=== PATIENT | female | born 1955 | race Caucasian/White ===

== ENCOUNTER 2019-12-14 11:20 | Inpatient (IN) | payer MEDICARE ==
[~2019-12-14] VITALS: Ht 162.6 cm; Wt 72.3 kg
[2019-12-14] MEDS ORDERED: LIDO2SOL9 MT (11:34)
[2019-12-14] MEDS ORDERED: RA M500C PO (11:34)
[2019-12-14] MEDS ORDERED: BUPR-69 PO (11:34)
[2019-12-14] MEDS ORDERED: LACT20EL PO (11:34)
[2019-12-14] MEDS ORDERED: AMLO25TA PO (11:34)
[2019-12-14] MEDS ORDERED: ALBU83IN NEB (11:34)
[2019-12-14] MEDS ORDERED: NESI25TA PO (11:34)
[2019-12-14] MEDS ORDERED: FAMO40TA3 PO (11:34)
[2019-12-14] MEDS ORDERED: VICT18IN SC (11:34)
[2019-12-14] MEDS ORDERED: MAGN400T2 PO (11:34)
[2019-12-14] MEDS ORDERED: LISI40TA PO (11:34)
[2019-12-14] MEDS ORDERED: [UNRECOGNIZED DRUG - CODE] PO (11:34)
[2019-12-14] MEDS ORDERED: GABA-845 PO (11:34)
[2019-12-14] MEDS ORDERED: FERR325T15 PO (11:34)
[2019-12-14] MEDS ORDERED: VITAPOW9 XX (11:34)
[2019-12-14] MEDS ORDERED: PANT40TA29 PO (11:34)
[2019-12-14] MEDS ORDERED: JANU100T14 PO (11:35)
[2019-12-14] MEDS ORDERED: MORPHINE 2 MG/ML 1ML VIAL (J2270) IV PRN ×2 (12:00→17:30)
--- NOTE | 2019-12-14 12:26 | REPVR ---
PROCEDURE INFORMATION: Exam: CT Head Without Contrast Exam date and time: 12/14/2019 12:03 PM Age: 64 years old Clinical indication: Injury or trauma; Fall; Blunt trauma (contusions or hematomas) TECHNIQUE: Imaging protocol: Computed tomography of the head without contrast. Radiation optimization: All CT scans at this facility use at least one of these dose optimization techniques: automated exposure control; mA and/or kV adjustment per patient size (includes targeted exams where dose is matched to clinical indication); or iterative reconstruction. COMPARISON: No relevant prior studies available. FINDINGS: Brain: There is no acute intracranial hemorrhage, cerebral edema, or midline shift. Chronic microvascular ischemic changes are seen in the periventricular white matter. Age-related cerebral and cerebellar volume loss is present. Cerebral ventricles: Mild ex vacuo dilation of the lateral ventricles is noted. Bones/joints: No acute fracture. Paranasal sinuses: There is no acute sinusitis. Mastoid air cells: The mastoid air cells are clear. Orbital cavity: The included orbital structures are unremarkable. Vasculature: Atherosclerotic calcifications are seen involving the cavernous carotid arteries. Soft tissues: Unremarkable. IMPRESSION: 1. No acute intracranial abnormality. 2. Atrophy and chronic deep white matter ischemic changes. Electronically signed by: Andrey Flores On 12/14/2019 12:25:57 PM
--- NOTE | 2019-12-14 12:29 | REPVR ---
PROCEDURE INFORMATION: Exam: CT Cervical Spine Without Contrast Exam date and time: 12/14/2019 12:03 PM Age: 64 years old Clinical indication: Injury or trauma; Fall; Blunt trauma TECHNIQUE: Imaging protocol: Computed tomography images of the cervical spine without contrast. Radiation optimization: All CT scans at this facility use at least one of these dose optimization techniques: automated exposure control; mA and/or kV adjustment per patient size (includes targeted exams where dose is matched to clinical indication); or iterative reconstruction. COMPARISON: No relevant prior studies available. FINDINGS: Vertebrae: There is straightening of the normal cervical lordosis. There is 3 mm of anterolisthesis of C4 on C5 and 2 mm of anterolisthesis of C5 on C6. No acute fracture is identified. Discs/Spinal canal/Neural foramina: Mild degenerative changes of the cervical spine are present. There is no significant spinal canal stenosis. Soft tissues: Unremarkable. Lungs: Lung apices are normal. IMPRESSION: 1. No acute abnormality. 2. Chronic findings as discussed above. Electronically signed by: Andrey Flores On 12/14/2019 12:29:32 PM
--- NOTE | 2019-12-14 12:33 | REPVR ---
PROCEDURE INFORMATION: Exam: XR Chest, 1 View Exam date and time: 12/14/2019 11:54 AM Age: 64 years old Clinical indication: Screening exam; Pre-operative exam; Cardiovascular screening; Additional info: Preop TECHNIQUE: Imaging protocol: XR of the chest Views: 1 view. COMPARISON: No relevant prior studies available. FINDINGS: Lungs: Unremarkable. No consolidation. Pleural space: Unremarkable. No pleural effusion. No pneumothorax. Heart/Mediastinum: Unremarkable. No cardiomegaly. Bones/joints: Unremarkable. IMPRESSION: No acute findings. Electronically signed by: Andrey Flores On 12/14/2019 12:33:43 PM
--- NOTE | 2019-12-14 12:35 | REPVR ---
PROCEDURE INFORMATION: Exam: XR Left Hip with Pelvis when Performed Exam date and time: 12/14/2019 11:54 AM Age: 64 years old Clinical indication: Hip pain; Left hip; Additional info: Preop, fell TECHNIQUE: Imaging protocol: XR Left hip with pelvis when performed. Views: 2 or 3 views. COMPARISON: No relevant prior studies available. FINDINGS: Bones/joints: There is an acute minimally displaced left intertrochanteric fracture. A slight varus deformity is noted. There is no dislocation. Moderate degenerative changes of the hips are present. Soft tissues: Unremarkable. IMPRESSION: Acute left intertrochanteric fracture Electronically signed by: Andrey Flores On 12/14/2019 12:34:55 PM
--- NOTE | 2019-12-14 12:36 | REPVR ---
PROCEDURE INFORMATION: Exam: XR Left Femur Exam date and time: 12/14/2019 12:12 PM Age: 64 years old Clinical indication: Pain; Hip; Left; Additional info: Fall, ap hip image is in hip order TECHNIQUE: Imaging protocol: XR Left femur. Views: 2 views. COMPARISON: CR - Hip,AP,LAT to include Pelvis LEFT 12/14/2019 12:01:00 PM FINDINGS: Bones/joints: There is a partially visualized acute left intertrochanteric fracture. No other fracture is seen. Mild osteopenia is present. Soft tissues: Unremarkable. IMPRESSION: Acute left intertrochanteric fracture Electronically signed by: Andrey Flores On 12/14/2019 12:36:09 PM
[2019-12-14 12:39] LABS: HEMATOCRIT 26.6 % (36.0-47.0); HEMOGLOBIN 8.1 g/dl (12.0-15.5); MEAN CORPUSCULAR HGB CONC 30.5 g/dl (32.0-36.5); PLATELET COUNT, AUTOMATED 223 10^3/uL (150-450); RED BLOOD COUNT 2.89 10^6/uL (4.00-5.40); WHITE BLOOD COUNT 11.3 10^3/uL (4.0-10.0)
[2019-12-14 13:17] LABS: ALT/SGPT 17 U/L (12-78); BILIRUBIN,TOTAL 0.3 MG/DL (0.2-1.0); BLOOD UREA NITROGEN 22 MG/DL (7-18); CALCIUM LEVEL 8.3 MG/DL (8.8-10.2); CARBON DIOXIDE LEVEL 24 MEQ/L (21-32); CHLORIDE LEVEL 115 MEQ/L (98-107); CK-MB VALUE MASS 1.9 NG/ML (<3.6); CPK CREATINE PHOSPHOKINASE 44 U/L (26-192); CREATININE FOR GFR 1.75 MG/DL (0.55-1.30); FERRITIN 6 NG/ML (8-252); GLOMERULAR FILTRATION RATE 31.1 (>45); GLUCOSE, FASTING 160 MG/DL (70-100); IRON (FE) 37 UG/DL (50-170); MB/CK RELATIVE INDEX 4.32 (< OR =4); PERCENT SATURATION 9.2 % (13.2-45.0); SODIUM LEVEL 141 MEQ/L (136-145); TOTAL IRON BINDING CAPACITY 403 UG/DL (250-450); TOTAL PROTEIN 5.6 GM/DL (6.4-8.2); TROPONIN I < 0.02 NG/ML (< 0.10)
[2019-12-14 13:24] LABS: VITAMIN B12 LEVEL 400 PG/ML (247-911)
[2019-12-14] MEDS ORDERED: BASA100I SC (13:27)
[2019-12-14] MEDS ORDERED: KCL 10MEQ IN D5/0.45NS 1000ML 1,000 ML IV SCH (14:00)
[2019-12-14] MEDS ORDERED: hydrALAZINE 20MG/ML 1ML VIAL (J0360 PER 20MG) IV ONE (14:00)
[2019-12-14] MEDS ORDERED: GLUCAGON INJ 1MG VIAL SC PRN (14:00)
[2019-12-14] MEDS ORDERED: IPRATROPIUM 0.5MG/ALBUTEROL 2.5MG INH SOL UD 3ML (DUONEB) NEB PRN (14:00)
[2019-12-14] MEDS ORDERED: MORPHINE 10 MG/ML 1ML VIAL (J2270) IV ONE (14:00)
[2019-12-14] MEDS ORDERED: GLUCOSE 4GM CHEW TABLET PO PRN (14:00)
[2019-12-14] MEDS ORDERED: amLODIPine 5 MG TAB PO ONE (14:00)
[2019-12-14] MEDS ORDERED: DEXTROSE 50% 50 ML SYRINGE IV PRN (14:00)
[2019-12-14] MEDS ORDERED: IPRATROPIUM 0.5MG/ALBUTEROL 2.5MG INH SOL UD 3ML (DUONEB) NEB ONE (14:15)
[2019-12-14] MEDS ORDERED: D5W/0.45% SODIUM CHLORIDE 1,000 ML IV SCH (14:30)
--- NOTE | 2019-12-14 14:35 | HPEPDOC ---
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 Patient is visiting along with her to help her daughter at [place] move to [place], [place]. She had already taken a shower this morning but went back into the bathroom to wash her face and hair, with her daughter in the bathtub when she slipped and fell on wet tiles landing on her left side and hitting the tub. Her family did not wonder move her worried that they might make the fracture worse. She complained of 10 out of 10 pain on the left side without head trauma or loss of consciousness. Her daughter stepped out of the bathtub, checked on her, and found that her left leg was twisted inwards with the toes pointing medially. She did not appear pale, diaphoretic, short of breath, or cyanotic. She was on the bathroom floor for about 10 minutes when her picked her up by bear-hugging her, preventing her from weightbearing on the left lower extremity, and place her on the bed. In the emergency room she was found to have a left hip fracture. EKG shows left ventri cular hypertrophy without acute ST-T wave changes. Chest x-ray negative for acute cardiopulmonary disease. Patient and the patient's both consented to surgery. Orthopedic surgery was consulted. Hospitalist was called to admit the patient for left hip fracture status post mechanical fall. . She denied any prodromal symptoms and denied any chest pain, pressure, tightness, shortness of breath, lightheadedness, dizziness, palpitations, nausea, vomiting, epigastric discomfort prior to the fall. She has been in her usual state of health and denied any fever, chills, shortness of breath, nausea, vomiting, dysuria, urgency, frequency, weight gain, weight loss, polyuria, polyphasia, insomnia, ear pain, discharge, tinnitus, vertigo, photophobia, diplopia. She admits to having chronic short-term memory loss and has difficulty with her left side due to prior history of CVA, but per the is able to walk up and down the grocery store and able to walk up the stairs without shortness of breath or chest pain. She has no prior history of coronary artery disease, IA or congestive heart failure. She denies any bright red blood per rectum, melena, black tarry stools, history of gastritis, peptic ulcer disease, but was noted to have chronic anemia with hemoglobin of 8. 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 Springer. Full code. Healthcare proxy is Evangelist Kern, cell phone [phone]. 10-kelv-oofy history of smoking, still smokes 1 pack per day. No alcohol use. No recreational drug use. Retired senior corporate accountant. Lives in [place]. Has a daughter at [place] who is moving to [place], [place] FAMILY HISTORY: . Father cancer age 62, involving the lung, kidney and liver, unknown where the primary may have been. . Mother age 76 CVA ALLERGIES: Please see below. REVIEW OF SYSTEMS: 12 point systems review obtained and negative aside from positive findings on HPI, documented above HOME MEDICATIONS: Please see below. PHYSICAL EXAMINATION: VITAL SIGNS: See below GENERAL APPEARANCE: Awake, alert, oriented to person, place and time, answering questions appropriately HEENT: Face is symmetric. Tongue is midline. Speech is fluent. No JVD, thyromegaly or cervical lymphadenopathy. No carotid bruit CARDIOVASCULAR: S1, S2, sinus rhythm, no murmurs, rubs or gallops LUNGS: No kyphosis scoliosis. Air entry is equal bilaterally. Bilateral rhonchi ABDOMEN: Positive bowel sounds 4 quadrants, soft, nontender, nondistended. No abdominal bruit MUSCULOSKELETAL: Left lower extremity rotated inwards. Left third, fourth, fifth digits are fused left hip tender, unable to assess for range of motion due to severe pain EXTREMITIES: No cyanosis, clubbing or pitting edema LABORATORY DATA: See below. EKG: Sinus rhythm, ventricular rate of 58, nonspecific ST-T wave changes, left ventricle hypertrophy IMAGING STUDIES: X-ray left hip with pelvis 12/14/2019. Acute left intertrochanteric fracture, minimally displaced a slight varus deformities noted. There is no dislocation. Moderate degenerative changes of the hips are present, unremarkable soft tissue 12/14/2019. CT head without contrast No acute intracranial abnormality 12/14/2019 Chest x-ray No acute findings 12/14/[address] cervical spine without contrast There is straightening of the normal cervical lordosis. There is 3 mm of anterolisthesis of C4 and C5 and 2 mm anterolisthesis of C5 on C6. No acute fracture is identified. Mild degenerative changes of the cervical spine are present. No significant spinal canal stenosis. Soft tissues are unremarkable. Lung apices are normal. 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 Patient is visiting along with her to help her daughter at [facility] to [place], [place]. She had already taken a shower this morning but went back into the bathroom to wash her face and hair, with her daughter in the bathtub when she slipped and fell on wet tiles landing on her left side and hitting the tub. Her family did not wonder move her worried that they might make the fracture worse. She complained of 10 out of 10 pain on the left side without head trauma or loss of consciousness. Her daughter stepped out of the bathtub, checked on her, and found that her left leg was twisted inwards with the toes pointing medially. She did not appear pale, diaphoretic, short of breath, or cyanotic. She was on the bathroom floor for about 10 minutes when her picked her up by bear-hugging her, preventing her from weightbearing on the left lower extremity, and place her on the bed. In the emergency room she was found to have a left hip fracture. EKG shows left ventricular hypertrophy without acute ST-T wave changes. Chest x-ray negative for acute cardiopulmonary disease. Patient and the patient's both consented to surgery. Orthopedic surgery was consulted. Hospitalist was called to admit the patient for left hip fracture status post mechanical fall. . She denied any prodromal symptoms and denied any chest pain, pressure, tightness, shortness of breath, lightheadedness, dizziness, palpitations, nausea, vomiting, epigastric discomfort prior to the fall. She has been in her usual state of health and denied any fever, chills, shortness of breath, nausea, vomiting, dysuria, urgency, frequency, weight gain, weight loss, polyuria, polyphasia, insomnia, ear pain, discharge, tinnitus, vertigo, photophobia, diplopia. She admits to having chronic short-term memory loss and has difficulty with her left side due to prior history of CVA, but per the is able to walk up and down the grocery store and able to walk up the stairs without shortness of breath or chest pain. She has no prior history of coronary artery disease, IA or congestive heart failure. She denies any bright red blood per rectum, melena, black tarry stools, history of gastritis, peptic ulcer disease, but was noted to have chronic anemia with hemoglobin of 8. Preoperative medical clearance: -Patient has not had any prior history of coronary artery disease, IA or congestive heart failure. She does have risk factors for coronary artery disease including diabetes, hypertension, actively smoking cigarettes and with her prior history of CVA, and most likely has stable angina. However, per the , her functional capacity has metabolic equivalence of greater than 4 and she is currently not having any acute ischemic symptoms or complaints. Her EKG has left ventricular hypertrophy, most likely from chronic hypertension and long-standing diabetes but has no acute ST or T-wave changes. Her chest x-ray has no fluid overload. Despite having rhonchorous breath sounds, Patient is saturating well at 96% on room air without any history of COPD or emphysema and no documented history of prior oxygen use or steroid dependency. Patient will be given nebulizers every 4 hourly, Norvasc to improve her blood pressure, intravenous morphine for pain control, and will be Nothing by mouth for surgery. She is cu rrently medically stable to proceed to surgery, and will be placed on intravenous fluids for maintenance and hypoglycemic protocol,with fingersticks every 6 hourly. Covid testing has been ordered. INR ordered. compression stockings for DVT prophylaxis preoperatively. Mechanical fall from a standing position at home with an acute left intertrochanteric fracture -Patient denies any prodromal symptoms. She is medically stable to proceed to surgery. Orthopedic surgery, Dr. Jean Teixeira, has been consulted. She will be kept nothing by mouth patient denies taking any antiplatelet or anticoagulants despite her history of stroke with residual chronic short-term memory loss and occasional left lower extremity weakness. Records have been requested from her neurologist in [place]. For comfort and to decrease risk of worsening fracture, patient will be On bed rest. IV morphine as needed every 30 minutes will be made available for pain control. History of CVA with chronic short-term memory loss -Patient denies being on chronic aspirin antiplatelet therapy or anticoagulation. She follows with a neurologist in [place]. Medical records have been requested. Due to chronic short-term memory loss, She will most likely have difficulty working with physical therapy and occupational therapy postoperatively. Her will be permitted to stay with her during the hospital stay as she will most likely need 24/ 7 assistance. Hypertension, uncontrolled -Due to acute left intertrochanteric fracture. Patient complains of severe pain, which is contributing to uncontrolled hypertension. She has been given IV morphine 5 mg in the emergency room, and has as needed morphine every 30 minutes for pain control while nothing by mouth. Postop pain management will be deferred to orthopedic surgery. Patient has been given Norvasc, with blood pressure monitoring every 4 hourly while awaiting surgical intervention. Type 2 diabetes with diabetic neuropathy -Since the patient is awaiting surgical intervention. She will be kept nothing by mouth on hypoglycemic protocol. Insulin sliding scale with coverage and fingersticks every 6 hourly to prevent hypoglycemia. A1c will be checked in the morning labs and she'll be resumed on a consistent carbohydrate diet Postoperatively Active tobacco abuse/chronic bronchitis -Tobacco cessation counseling has been provided. Nicotine patch, nicotine gum will be made available for her comfort. Combivent every 4 hourly and every 2 hourly as needed for wheezing. Chest x-ray is normal. Diabetic nephropathy/chronic kidney disease stage III -Records from her outpatient primary care physician and been requested, avoid nephrotoxins. Renally dose all medications, no signs of rhabdomyolysis with total CK being normal. Strict I's and O's, daily weights Anemia, most likely secondary to chronic kidney disease and iron deficiency -Iron studies, Hemoccult stool, reticulocyte count and peripheral blood smear have been ordered. Type and screen. Transfuse if hemoglobin is less than 8 or symptomatic. There are no signs of acute blood loss and no obvious hematoma. . She denies any history of GI bleed. Monitor hemoglobin and hematocrit every 6 hourly postoperatively if hemoglobin significantly decreases postop. DVT prophylaxis. Compression stockings while nothing by mouth awaiting surgery CODE STATUS full code. Healthcare proxy Evangelist Kern [phone] Disposition: 3-4 days Vital Signs Vital Signs Date Time Temp Pulse Resp B/P (MAP) Pulse Ox O2 Delivery O2 Flow Rate FiO2 12/14/19 13:16 60 96 12/14/19 13:15 175/66 (102) 12/14/19 11:37 98.3 16 Room Air Laboratory Data Labs 24H Laboratory Tests 2 12/14/19 11:54: Nucleated Red Blood Cells % (auto) 0.0, Anion Gap 2L, Glomerular Filtration Rate 31.1L, Calcium Level 8.3L, Iron Level 37L, Total Iron Binding Capacity 403, Transferrin % Saturation 9.2L, Ferritin 6L, Total Bilirubin 0.3, Aspartate Amino Transf (AST/SGOT) 20, Alanine Aminotransferase (ALT/SGPT) 17, Alkaline Phosphatase 99, Total Creatine Kinase 44, Creatine Kinase MB 1.9, Creatine Kinase MB Relative Index 4.32H, Troponin I < 0.02, Total Protein 5.6L, Albumin 3.0L, Albumin/Globulin Ratio 1.2, Vitamin B12 Level 400, Thyroid Stimulating Hormone (TSH) 1.780 12/14/19 13:04: CBC/BMP Laboratory Tests 12/14/19 11:54 Home Medications Scheduled Alogliptin Benzoate (Nesina) 25 Mg Tablet, 25 MG PO DAILY Amlodipine Besylate (Amlodipine Besylate) 2.5 Mg Tablet, 2.5 MG PO DAILY Bupropion HCl (Bupropion HCl) 100 Mg Tablet, 150 MG PO BID Famotidine (Famotidine) 40 Mg Tablet, 40 MG PO DAILY Ferrous Fumarate (Ferretts) 325 Mg Tablet, 1 TAB PO DAILY Gabapentin (Gabapentin) 400 Mg Capsule, 1 CAP PO TID Lactulose (Lactulose) 10 Gm/15 Ml Solution, 30 ML PO BID for constipation Liraglutide (Victoza 2-Gera) 0.6 Mg/0.1 Ml Pen.injctr, 1.8 MG SC DAILY Lisinopril (Lisinopril) 40 Mg Tablet, 1 TAB PO DAILY Magnesium Oxide (Magnesium Oxide) 400 Mg Tablet, 1 TAB PO DAILY for constipation Magnesium Oxide (Magnesium) 500 Mg Capsule, 1 CAP PO BID for constipation Pantoprazole Sodium (Pantoprazole Sodium) 40 Mg Tablet.dr, 40 MG PO DAILY Sitagliptin Phos/Metformin HCl (Janumet Xr 100-1,000 mg Tablet) 1 Each Tbmp.24hr, 1 TAB PO DAILY Scheduled PRN Albuterol Sulf (Albuterol Sulfate) 2.5 Mg/3 Ml Vial.neb, 1 VIAL NEB Q6-8HP PRN for wheezing Miscellaneous Medications Cholecalciferol (Vitamin D3) (Vitamin D3) 1 Gm Powder, 100,000 UNIT XX Insulin Glargine,Hum.rec.anlog (Basaglar Kwikpen U-100) 100 Unit/1 Ml Insuln.pe n, 30 UNIT SC Leucovorin/Pyridox/Mecobalamin (Folinic-Plus Caplet) 1 Each Tablet, 1 TAB PO Lidocaine HCl (Lidocaine HCl Viscous) 100 Ml Solution, 2 % MT Allergies Coded Allergies: No Known Drug Allergies (Verified Allergy, Unknown, 12/14/19) A-FIB/CHADSVASC A-FIB History Current/History of A-Fib/PAF?: No Current PO Anticoag Therapy: No Age/Risk Factor Scoring CHADSVASC: CHADSVASC Response (Comments) Value Age Risk Factor Age 65-74 years old 1 Gender Risk Factor Female 1 Hx of CHF No 0 Hx of HTN Yes 1 Hx of Stroke/TIA/or VTE Yes 2 Hx of Diabetes Yes 1 Hx of Vascular Disease Yes 1 Total 7 Treatment Treatment ordered: NONE Reason Anticoagulant not given: Recent/upcomin procedure ALEXIS GROSS MD Dec 14, 2019 14:17
[2019-12-14] MEDS ORDERED: KETAMINE HCL 200 MG/20 ML VIAL As Ordered ONE (14:36)
[2019-12-14] MEDS ORDERED: propofoL 200 MG/20 ML VIAL As Ordered ONE (14:36)
[2019-12-14] MEDS ORDERED: LIDOCAINE 2% 100MG/5ML SDV (FOR ANES.) As Ordered ONE (14:36)
[2019-12-14] MEDS ORDERED: MIDAZOLAM INJ 2MG/2ML VIAL (J2250 PER 1MG) As Ordered ONE (14:36)
[2019-12-14] MEDS ORDERED: fentaNYL 100 MCG/2 ML INJECTION (J3010) As Ordered ONE (14:36)
[2019-12-14] MEDS ORDERED: JANU100T PO (14:40)
[2019-12-14] MEDS ORDERED: GABA600T4 PO (14:40)
[2019-12-14] MEDS ORDERED: PROP40TA62 PO (14:40)
[2019-12-14] MEDS ORDERED: DULO1CAP6 PO (14:40)
[2019-12-14] MEDS ORDERED: MECL-86 PO (14:40)
[2019-12-14] MEDS ORDERED: BUPR1TAB53 PO (14:40)
[2019-12-14] MEDS ORDERED: ATOR1TAB19 PO (14:40)
[2019-12-14] MEDS ORDERED: ceFAZolin 2 GM/D5W 50 ML IV BAG (J0690 PER 500MG) As Ordered ONE (15:15)
[2019-12-14] MEDS ORDERED: TRANEXAMIC ACID 100 MG/ML 10ML VIAL As Ordered ONE (15:15)
[2019-12-14 15:17] LABS: INR 1.06
[2019-12-14 15:18] LABS: PARTIAL THROMBOPLASTIN TIME 21.6 SECONDS (24.2-38.5)
[2019-12-14] MEDS ORDERED: ePHEDrine SULFATE 25 MG/5 ML(5MG/ML) SYRINGE As Ordered ONE ×2 (16:09→16:10)
[2019-12-14] MEDS ORDERED: ePHEDrine INJ 50 MG/ML VIAL As Ordered ONE (16:17)
[2019-12-14] MEDS ORDERED: ACETAMINOPHEN 1000MG 100ML IV BTL (OFIRMEV) (J0131 PER 10MG) As Ordered ONE (16:42)
[2019-12-14] MEDS ORDERED: ONDANSETRON 4MG/2ML VIAL As Ordered ONE (16:45)
[2019-12-14] MEDS ORDERED: DEXTROSE 50% 50 ML SYRINGE IV SCH (17:30)
[2019-12-14] MEDS ORDERED: fentaNYL 100 MCG/2 ML INJECTION (J3010) IV PRN (17:30)
[2019-12-14] MEDS ORDERED: oxyCODONE 5MG TAB PO PRN (17:30)
[2019-12-14] MEDS ORDERED: METOCLOPRAMIDE INJ 10MG/2ML VIAL (J2765 PER 1) IV PRN (17:30)
[2019-12-14] MEDS ORDERED: ONDANSETRON 4MG/2ML VIAL IV PRN ×2 (17:30)
[2019-12-14] MEDS ORDERED: LR 1,000 ML IV SCH ×2 (17:30)
[2019-12-14] MEDS ORDERED: DEXTROSE 50% 50 ML SYRINGE ONE (18:44)
[2019-12-14 19:30] VITALS: BP 182/72
[2019-12-14 20:00] VITALS: BP 165/51
[2019-12-14] MEDS: IPRATROPIUM 0.5MG/ALBUTEROL 2.5MG INH SOL UD 3ML (DUONEB) NEB SCH ×2 (20:00→23:31)
[2019-12-14] MEDS: PERCOCET 5MG/325MG TAB PO PRN (20:34)
[2019-12-14 21:00] VITALS: BP 163/58
[2019-12-14 22:00] VITALS: BP 159/57
[2019-12-15] VITALS (8 sets, daily range): BP systolic 148–165; BP diastolic 58–68
[2019-12-15] MEDS: ceFAZolin SOD 2 GM in IV 1 EA IV SCH ×2 (00:26→09:14)
[2019-12-15] MEDS: PERCOCET 5MG/325MG TAB PO PRN ×3 (01:21→18:16)
[2019-12-15] MEDS: IPRATROPIUM 0.5MG/ALBUTEROL 2.5MG INH SOL UD 3ML (DUONEB) NEB SCH ×6 (04:00→23:43)
[2019-12-15] MEDS ORDERED: MECLIZINE 25 MG TABLET PO PRN (06:15)
[2019-12-15 06:40] LABS: HEMATOCRIT 22.5 % (36.0-47.0); MEAN CORPUSCULAR HEMOGLOBIN 27.9 pg (27.0-33.0); MEAN CORPUSCULAR HGB CONC 30.2 g/dl (32.0-36.5); MEAN CORPUSCULAR VOLUME 92.2 fl (80.0-96.0); PLATELET COUNT, AUTOMATED 179 10^3/uL (150-450); RED BLOOD COUNT 2.44 10^6/uL (4.00-5.40); WHITE BLOOD COUNT 8.6 10^3/uL (4.0-10.0)
[2019-12-15 06:43] LABS: HEMOGLOBIN 6.8 g/dl (12.0-15.5)
[2019-12-15 06:55] LABS: HEMOGLOBIN A1c 6.9 %
[2019-12-15 07:15] LABS: CALCIUM LEVEL 7.6 MG/DL (8.8-10.2); CHOLESTEROL RISK RATIO 2.074 (<5); CREATININE FOR GFR 1.6 MG/DL (0.55-1.30); GLOMERULAR FILTRATION RATE 34.4 (>45); POTASSIUM SERUM 4.5 MEQ/L (3.5-5.1); THYROID STIMULATING HORMONE 0.619 uIU/ML (0.358-3.740)
--- NOTE | 2019-12-15 07:35 | CR ---
DATE OF CONSULTATION: 12/14/2019 CHIEF COMPLAINT: Left intertrochanteric hip fracture. HISTORY OF PRESENT ILLNESS: This is a 64-year-old female is here with her , Evangelist. They have been staying from [place]. They are visiting their granddaughter. They are moving her to [place]. They are staying in a motel. She fell in the bathroom. She was unable to ambulate. There was no loss of consciousness. She has left hip pain. No other injuries. No prior hip pain. MEDICAL HISTORY: 1. Type 2 diabetes. 2. Stroke in 2009. 3. Hypertension. MEDICATIONS: No anticoagulants. She appears to be on albuterol, senna, amlodipine, bupropion, vitamin D, ferrous fumarate, gabapentin, insulin glargine, lactulose, leucovorin, liraglutide, lisinopril, magnesium, pantoprazole, sitagliptin. ALLERGIES: No known drug allergies. SURGICAL HISTORY: Per the hospitalist. SOCIAL HISTORY: Smokes a pack of cigarettes a day. No ambulator aids. Rarely consumes alcohol. She is here with her , Evangelist. 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 PHYSICAL EXAMINATION: A 64-year-old female. She is alert and oriented times three. Vital signs stable. She appears well. I see no other injuries. She points to the left side as the site with pain. Closed injury. thighcompartments are soft. No obvious hematoma. Normal sensation and motor function of the foot. Foot is warm and well perfused. Good pedal pulses. She can wiggle her toes, dorsiflex and plantarflex her foot. There is slight diminished sensation over the dorsum of it, from her chronic neuropathy she stated. Radiographs were obtained of the left hip and left femur. This shows a minimally displaced left intertrochanteric hip fracture. No distal extension and no obvious bone lesions. CT scan was also performed of the head. This is negative for acute intracranial abnormalities. Blood work performed showing a low hemoglobin at 8.1. Coagulation studies are pending and ordered by myself. COVID test is pending. ASSESSMENT AND PLAN: This is a 64-year-old female with a left hip intertrochanteric fracture. This would benefit from open reduction, internal fixation (ORIF) with intramedullary jennifer. We discussed pros, cons, risks, and benefits of nonsurgical treatment versus surgery. Surgical risks include, but are not limited to, infection, pain, stiffness, weakness, damage to surrounding structures, neurovascular injury, delayed, mal, or nonunion, hardware irritation, hardware failure, need for secondary surgeries, anesthetic complications, blood clots, , and other risks. She wished to go ahead. We marked the left lower extremity. Signed the consent form for surgery as well as possible need for blood products. Pros, cons, risks, benefits as well. Various treatments were discussed also with the hospitalist. YOLANDA
[2019-12-15] MEDS ORDERED: lisinopriL 40 MG TAB PO SCH (09:00)
[2019-12-15] MEDS: MOM 30ML SUSPENSION UDC PO SCH (09:14)
[2019-12-15] MEDS: DULoxetine 30 MG CAP (CYMBALTA) PO SCH ×2 (09:15→20:30)
[2019-12-15] MEDS: buPROPion **SR TABLET** (ZYBAN) 150MG PO SCH (09:15)
[2019-12-15] MEDS ORDERED: MORPHINE 4 MG/ML 1ML VIAL/SYRINGE (J2270) IV ONE (09:15)
[2019-12-15] MEDS: PROPRANOLOL 20 MG TAB PO SCH ×2 (09:16→20:29)
[2019-12-15] MEDS: MIRALAX *UNIT DOSE* 17GM PACKET PO SCH (09:16)
[2019-12-15] MEDS: PANTOPRAZOLE 40MG TAB (PROTONIX) PO SCH (09:16)
[2019-12-15] MEDS: GABAPENTIN 300 MG CAP PO SCH (09:16)
[2019-12-15] MEDS: ATORVASTATIN 10 MG TAB PO SCH (09:16)
--- NOTE | 2019-12-15 10:14 | IPNPDOC ---
Date Seen The patient was seen on 12/15/19. Progress Note SUBJECTIVE: She complains of 10 out of 10 pain while being repositioned in bed status post left hip ORIF with intramedullary placement, postop day #1. Repeat CBC this morning has a decrease in hemoglobin from 8.1-6.8 after receiving IV fluids yesterday of 1.375 L while she was nothing by mouth patient otherwise denies any bright red blood per rectum, melena, black tarry stools, hematemesis. No signs of hematoma at the hip site postoperatively. Patient has no ecchymosis around the umbilicus. No Garrison Tan's sign noted. OBJECTIVE: PHYSICAL EXAMINATION: VITAL SIGNS: See below GENERAL APPEARANCE: Awake, alert, oriented to person, place and time, answering questions appropriately HEENT: Face is symmetric. Tongue is midline. Speech is fluent. No JVD, thyromegaly or cervical lymphadenopathy. No carotid bruit CARDIOVASCULAR: S1, S2, sinus rhythm, no murmurs, rubs or gallops LUNGS: No kyphosis scoliosis. Air entry is equal bilaterally. Bilateral rhonchi ABDOMEN: Positive bowel sounds 4 quadrants, soft, nontender, nondistended. No abdominal bruit MUSCULOSKELETAL: Postop left hip bandage clean and dry. No bloody discharge EXTREMITIES: No cyanosis, clubbing or pitting edema LABORATORY DATA: See below. EKG: Sinus rhythm, ventricular rate of 58, nonspecific ST-T wave changes, left ventricle hypertrophy IMAGING STUDIES: X-ray left hip with pelvis 12/14/2019. Acute left intertrochanteric fracture, minimally displaced a slight varus deformities noted. There is no dislocation. Moderate degenerative changes of the hips are present, unremarkable soft tissue 12/14/2019. CT head without contrast No acute intracranial abnormality 12/14/2019 Chest x-ray No acute findings 12/14/[address] cervical spine without contrast There is straightening of the normal cervical lordosis. There is 3 mm of anterolisthesis of C4 and C5 and 2 mm anterolisthesis of C5 on C6. No acute fracture is identified. Mild degenerative changes of the cervical spine are present. No significant spinal canal stenosis. Soft tissues are unremarkable. Lung apices are normal. 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 Patient is visiting along with her to help her daughter at [employer] move to [place], [place]. She had already taken a shower this morning but went back into the bathroom to wash her face and hair, with her daughter in the bathtub when she slipped and fell on wet tiles landing on her left side and hitting the tub. Her family did not wonder move her worried that they might make the fracture worse. She complained of 10 out of 10 pain on the left side without head trauma or loss of consciousness. Her daughter stepped out of the bathtub, checked on her, and found that her left leg was twisted inwards with the toes pointing medially. She did not appear pale, diaphoretic, short of breath, or cyanotic. She was on the bathroom floor for about 10 minutes when her picked her up by bear-hugging her, preventing her from weightbearing on the left lower extremity, and place her on the bed. In the emergency room she was found to have a left hip fracture. EKG shows left ventricular hypertrophy without acute ST-T wave changes. Chest x-ray negative for acute cardiopulmonary disease. Patient and the patient's both consented to surgery. Orthopedic surgery was consulted. Hospitalist was called to admit the patient for left hip fracture status post mechanical fall. . She denied any prodromal symptoms and denied any chest pain, pressure, tightness, shortness of breath, lightheadedness, dizziness, palpitations, nausea, vomiting, epigastric discomfort prior to the fall. She has been in her usual state of health and denied any fever, chills, shortness of breath, nausea, vomiting, dysuria, urgency, frequency, weight gain, weight loss, polyuria, polyphasia, insomnia, ear pain, discharge, tinnitus, vertigo, photophobia, diplopia. She admits to having chronic short-term memory loss and has difficulty with her left side due to prior history of CVA, but per the is able to walk up and down the grocery store and able to walk up the stairs without shortness of breath or chest pain. She has no prior history of coronary artery disease, UT or congestive heart failure. She denies any bright red blood per rectum, melena, black tarry stools, history of gastritis, peptic ulcer disease, but was noted to have chronic anemia with hemoglobin of 8. Mechanical fall from a standing position at home with an acute left intertrochanteric fracture PHYSICAL EXAMINATION: VITAL SIGNS: See below GENERAL APPEARANCE: Awake, alert, oriented to person, place and time, answering questions appropriately HEENT: Face is symmetric. Tongue is midline. Speech is fluent. No JVD, thyromegaly or cervical lymphadenopathy. No carotid bruit CARDIOVASCULAR: S1, S2, sinus rhythm, no murmurs, rubs or gallops LUNGS: No kyphosis scoliosis. Air entry is equal bilaterally. Bilateral rhonchi ABDOMEN: Positive bowel sounds 4 quadrants, soft, nontender, nondistended. No abdominal bruit MUSCULOSKELETAL: Left lower extremity rotated inwards. Left third, fourth, fifth digits are fused left hip tender, unable to assess for range of motion due to severe pain EXTREMITIES: No cyanosis, clubbing or pitting edema LABORATORY DATA: See below. EKG: Sinus rhythm, ventricular rate of 58, nonspecific ST-T wave changes, left ventricle hypertrophy IMAGING STUDIES: X-ray left hip with pelvis 12/14/2019. Acute left intertrochanteric fracture, minimally displaced a slight varus deformities noted. There is no dislocation. Moderate degenerative changes of the hips are present, unremarkable soft tissue 12/14/2019. CT head without contrast No acute intracranial abnormality 12/14/2019 Chest x-ray No acute findings 12/14/[address] cervical spine without contrast There is straightening of the normal cervical lordosis. There is 3 mm of anterolisthesis of C4 and C5 and 2 mm anterolisthesis of C5 on C6. No acute fracture is identified. Mild degenerative changes of the cervical spine are present. No significant spinal canal stenosis. Soft tissues are unremarkable. Lung apices are normal. 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 Patient is visiting along with her to help her daughter at [employer] move to [place], [place]. She had already taken a shower this morning but went back into the bathroom to wash her face and hair, with her daughter in the bathtub when she slipped and fell on wet tiles landing on her left side and hitting the tub. Her family did not wonder move her worried that they might make the fracture worse. She complained of 10 out of 10 pain on the left side without head trauma or loss of consciousness. Her daughter stepped out of the bathtub, checked on her, and found that her left leg was twisted inwards with the toes pointing medially. She did not appear pale, diaphoretic, short of breath, or cyanotic. She was on the bathroom floor for about 10 minutes when her picked her up by bear-hugging her, preventing her from weightbearing on the left lower extremity, and place her on the bed. In the emergency room she was found to have a left hip fracture. EKG shows left ventricular hypertrophy without acute ST-T wave changes. Chest x-ray negative for acute cardiopulmonary disease. Patient and the patient's both consented to surgery. Orthopedic surgery was consulted. Hospitalist was called to admit the patient for left hip fracture status post mechanical fall. . She denied any prodromal symptoms and denied any chest pain, pressure, tightness, shortness of breath, lightheadedness, dizziness, palpitations, nausea, vomiting, epigastric discomfort prior to the fall. She has been in her usual state of health and denied any fever, chills, shortness of breath, nausea, vomiting, dysuria, urgency, frequency, weight gain, weight loss, polyuria, polyphasia, insomnia, ear pain, discharge, tinnitus, vertigo, photophobia, diplopia. She admits to having chronic short-term memory loss and has difficulty with her left side due to prior history of CVA, but per the is able to walk up and down the grocery store and able to walk up the stairs without shortness of breath or chest pain. She has no prior history of coronary artery disease, UT or congestive heart failure. She denies any bright red blood per rectum, melena, black tarry stools, history of gastritis, peptic ulcer disease, but was noted to have chronic anemia with hemoglobin of 8. PROBLEMS: Mechanical fall from a standing position at home with an acute left intertrochanteric fracture History of CVA with chronic short-term memory loss Hypertension, uncontrolled Type 2 diabetes with diabetic neuropathy Active tobacco abuse/chronic bronchitis Diabetic nephropathy/chronic kidney disease stage III Anemia, most likely secondary to chronic kidney disease, iron deficiency, and hemodilution. PLAN: Postop management per orthopedic surgery including pain medication bowel regimen and DVT prophylaxis. Patient has developed postop anemia, most likely hemodilution, chronic renal failure and iron deficiency. She will be given 1 unit of RBC transfusion today. Hemoccult stool has been ordered. Patient may have difficulty following instructions from physical therapy and occupational therapy due to prior history of CVA and chronic left leg weakness along with difficulty with short-term memory. We will allow her to be with her during the day while she is working with physical therapy to remind her of instructions. Patient lives in [place] and was only passing through the [facility] to help her daughter moved to [place], [place]. She has been advised that it is best to fly home versus driving home all the way from [place] to [place] Post[facility] when she is medically cleared. Acute rehabilitation unit screen has been ordered. Patient is currently on DVT prophylaxis, but we'll need to monitor for worsening anemia or any signs of overt GI bleed. CODE STATUS full code. Healthcare proxy Evangelist Kern [phone] VS, I&O, 24H, Fishbone Vital Signs/I&O Vital Signs Date Time Temp Pulse Resp B/P (MAP) Pulse Ox O2 Delivery O2 Flow Rate FiO2 12/15/19 09:16 75 158/68 12/15/19 09:15 16 12/15/19 06:00 97.3 99 Nasal Cannula 2.0 I&O- Last 24 Hours up to 6 AM 12/15/19 06:00 Intake Total 1425 ml Output Total 100 ml Balance 1325 ml Laboratory Data 24H LABS Laboratory Tests 2 12/14/19 11:54: Reticulocyte # (auto) 56.4, Nucleated Red Blood Cells % (auto) 0.0, Differential Slide Review Report, Peripheral Blood Smear Path Consult PERIPHERAL SMEAR, Percent Reticulocyte Count 1.9H, Reticulocyte Hemoglobin Equivalent 24.2, Anion Gap 2L, Glomerular Filtration Rate 31.1L, Calcium Level 8.3L, Iron Level 37L, Total Iron Binding Capacity 403, Transferrin % Saturation 9.2L, Ferritin 6L, Total Bilirubin 0.3, Aspartate Amino Transf (AST/SGOT) 20, Alanine Aminotransferase (ALT/SGPT) 17, Alkaline Phosphatase 99, Total Creatine Kinase 44, Creatine Kinase MB 1.9, Creatine Kinase MB Relative Index 4.32H, Troponin I < 0.02, Total Protein 5.6L, Albumin 3.0L, Albumin/Globulin Ratio 1.2, Vitamin B12 Level 400, Thyroid Stimulating Hormone (TSH) 1.780 12/14/19 13:04: Coronavirus (COVID-19)(PCR) NEGATIVE 12/14/19 14:45: Prothrombin Time 14.0, Prothromb Time International Ratio 1.06, Activated Partial Thromboplast Time 21.6L 12/14/19 17:14: Bedside Glucose (Misc Panel) 47L 12/14/19 17:15: Bedside Glucose (Misc Panel) 46L 12/14/19 17:33: Bedside Glucose (Misc Panel) 177H 12/14/19 17:58: Bedside Glucose (Misc Panel) 139H 12/14/19 20:24: Bedside Glucose (Misc Panel) 109 12/15/19 06:28: Nucleated Red Blood Cells % (auto) 0.0, Anion Gap 5L, Glomerular Filtration Rate 34.4L, Estimated Mean Plasma Glucose 151H, Hemoglobin A1c 6.9, Calcium Level 7.6L, Triglycerides Level 138, Total Cholesterol 112, LDL Cholesterol 30, Non- HDL Cholesterol (LDL + VLDL) 58, Total HDL Cholesterol 54, Cholesterol/HDL Ratio 2.074, Thyroid Stimulating Hormone (TSH) 0.619 CBC/BMP Laboratory Tests 12/14/19 11:54 12/15/19 06:28 ALEXIS GROSS MD Dec 15, 2019 10:14
[2019-12-15] MEDS: RIVAROXABAN 10 MG TAB (XARELTO) PO SCH (18:15)
--- NOTE | 2019-12-15 19:08 | ECGEPIP ---
[facility] - ED Test Date: 2019-12-14 Pat Name: SANCHEZ WISE Department: Room: - Gender: Male [employer]: : 1955 Requested By: PAPO Rosario Order Number: [id number] Reading MD: Charles Nieves Measurements Intervals [place] Rate: 58 P: 27 VA: 158 QRS: -13 QRSD: 91 T: 75 QT: 416 QTc: 410 Interpretive Statements SINUS BRADYCARDIA LEFT VENTRICULAR HYPERTROPHY AND ST-T CHANGE NO PRIORS FOR COMPARISON Electronically Signed on 12-15-2019 19:08:10 EDT by Charles Nieves
[2019-12-16] MEDS: PERCOCET 5MG/325MG TAB PO PRN ×2 (03:19→21:20)
[2019-12-16] MEDS: IPRATROPIUM 0.5MG/ALBUTEROL 2.5MG INH SOL UD 3ML (DUONEB) NEB SCH ×6 (04:00→23:03)
[2019-12-16 06:00] VITALS: BP 175/66
[2019-12-16] MEDS ORDERED: PERCOCET 5MG/325MG TAB PO ONE (07:15)
[2019-12-16] MEDS ORDERED: amLODIPine 10 MG TAB PO ONE (07:15)
[2019-12-16] MEDS ORDERED: MORPHINE 2 MG/ML 1ML VIAL (J2270) IV ONE (07:15)
--- NOTE | 2019-12-16 07:19 | RO ---
DATE OF OPERATION: 12/14/2019 PREOPERATIVE DIAGNOSIS: Left hip intertrochanteric hip fracture. POSTOPERATIVE DIAGNOSIS: Left hip intertrochanteric hip fracture. PLANNED PROCEDURE: Left hip intramedullary nailing/open reduction and internal fixation. PROCEDURE PERFORMED: Left hip intramedullary nailing/open reduction and internal fixation. SURGEON: Dr. Jean Teixeira SCADA TECHNICIAN: ANESTHESIOLOGIST: Dr. Pulido TYPE OF ANESTHETIC: Spinal anesthetic. OPERATIVE PREAMBLE: This 64-year-old female had a mechanical fall. She sustained a minimally displaced left intertrochanteric hip fracture. The pros and cons, risks and benefits of going ahead with surgery were discussed with her and her . They wished to proceed. I saw her in preoperative holding and reiterated the risks and proceeded to surgery. OPERATIVE REPORT: The patient was brought to the operating theater. She was administered spinal anesthetic. The patient was administered 2 gm IV Ancef and 2 gm IV tranexamic acid prior to the start of the case. She was placed in traction setup, left leg in traction setup with internal rotation and slight traction, the right leg in scissoring position attached to the bed with padding overlying the peroneal nerve. X-rays were brought in, AP and lateral to confirm proper reduction. Limb was prepped and draped in usual sterile fashion with Chlorhexidine based prep solution and shower curtain style drape. Preoperative time out was performed confirming site, patient and surgery. I began by using a 3.2 mm partially threaded guidewire at the greater trochanter, both AP and lateral radiographs, down the center of the femoral canal on both AP and lateral radiographs aiming toward the lesser trochanter. I then made percutaneous stab incision, used the entry reamer to open the canal. I then used sequential reaming up to size 12.5 mm over top of the ball-tip guidewire, this was placed down distally down to the center-center at the knee on AP and lateral radiographs. This measured 390 mm and as such I took off 10 mm and inserted a 380 mm long nail, 125 degree neck shaft angle, 11 mm diameter. Guidewire was removed, drop-down guide placed, again using percutaneous technique and 3.2 mm guidewire into the center of the femoral neck and head into subchondral bone on both AP and lateral radiographs. This measured 105 mm. I performed near-far technique to ensure no penetration. There was one incidence of the guidewire penetrating subchondral bone, this was backed off immediately after it was noticed. I reamed to 100 mm in depth and then reamed up to 100 mm and inserted the 100 mm long helical blade. I impacted this down fully. I used guide to perform gentle compression at the fracture site. I then locked the fracture proximally and removed the drop down guide as well as the 3.2 mm guidewire. I turned my attention distally. I made stab incisions perfect chitimacha technique to insert the Crosslocks, the most distal one measured 44 mm long and more proximal one measured 40 mm long. Proximal one achieved quite good bite in the locking hole and the distal one achieved only reasonable bite but was bicortical. Guide was removed. Final pictures were taken, AP and lateral radiographs. Proper reduction was achieved, the nail was in proper position. The wounds were thoroughly irrigated. The subcutaneous tissue was closed with interrupted 2-0 Vicryl sutures and skin with smooth, Steri-Strips. Skin was cleaned with wet-to-dry dressing followed by application of Adaptic, 4 x 8 gauze and occlusive dressing. The patient was transferred off the operating table and taken out of traction setup and transferred to the postanesthesia care unit in stable condition. All sponge, needle, clamps and instrument counts were correct. Estimated blood loss: 100 cc. Plan for the patient is to be admitted to the hospital under Hospitalist Service, pain control, Xarelto 10 mg PO once daily for the next 35 days for DVT prophylaxis starting postoperative day 1. Will be made weightbearing as tolerated with PT/OT services to aid in mobilization on discharge home. [place] so may eventually be transferred back, where long- term placement is located. Follow up with myself or with another surgeon to take out smooth and do postoperative radiographs in a week or two. YOLANDA
--- NOTE | 2019-12-16 07:22 | IPNPDOC ---
Date Seen The patient was seen on 12/16/19. Progress Note SUBJECTIVE: c/o 8/10 pain scale with ambulation and bearing weight. wants to go home, but ARU appropriate unable to get up on her own. no overt GI bleed. s/p 1 u rbc. no sob, cp, lightheadedness. Uncontrolled HTN due to pain and anxiety. OBJECTIVE: PHYSICAL EXAMINATION: VITAL SIGNS: See below GENERAL APPEARANCE: Awake, alert, oriented to person, place and time, answering questions appropriately HEENT: Face is symmetric. Tongue is midline. no conversational dyspneaSpeech is fluent. No JVD, thyromegaly or cervical lymphadenopathy. No carotid bruit CARDIOVASCULAR: S1, S2, sinus rhythm, no murmurs, rubs or gallops LUNGS: No kyphosis scoliosis. Air entry is equal bilaterally.diminished ABDOMEN: Positive bowel sounds 4 quadrants, soft, nontender, nondistended. No abdominal bruit MUSCULOSKELETAL: Postop left hip bandage clean and dry. No bloody discharge EXTREMITIES: No cyanosis, clubbing or pitting edema LABORATORY DATA: See below. EKG: Sinus rhythm, ventricular rate of 58, nonspecific ST-T wave changes, left ventricle hypertrophy IMAGING STUDIES: X-ray left hip with pelvis 12/14/2019. Acute left intertrochanteric fracture, minimally displaced a slight varus deformities noted. There is no dislocation. Moderate degenerative changes of the hips are present, unremarkable soft tissue 12/14/2019. CT head without contrast No acute intracranial abnormality 12/14/2019 Chest x-ray No acute findings 12/14/[address] cervical spine without contrast There is straightening of the normal cervical lordosis. There is 3 mm of anterolisthesis of C4 and C5 and 2 mm anterolisthesis of C5 on C6. No acute fracture is identified. Mild degenerative changes of the cervical spine are present. No significant spinal canal stenosis. Soft tissues are unremarkable. Lung apices are normal. 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 PROBLEMS: Mechanical fall from a standing position at home with an acute left intertrochanteric fracture History of CVA with chronic short-term memory loss Hypertension, uncontrolled Type 2 diabetes with diabetic neuropathy Active tobacco abuse/chronic bronchitis Diabetic nephropathy/chronic kidney disease stage III Anemia, most likely secondary to chronic kidney disease, iron deficiency, and he modilution, s/p 1 u rbc transfusion 12/15/19 PLAN: Postop management per orthopedic surgery including pain medication bowel regimen and DVT prophylaxis. ARU appropriate. monitor for bleeding while on AC. s/p 1 u rbc. repeat cbc. monitor creatinine. BP uncontrolled due to pain, pain meds given, and bp meds adjusted. asymptomatic without acute cardiac ischemic symptoms. CODE STATUS full code. Healthcare proxy Evangelist Kern [phone] VS, I&O, 24H, [facility] Vital Signs/I&O Vital Signs Date Time Temp Pulse Resp B/P (MAP) Pulse Ox O2 Delivery O2 Flow Rate FiO2 12/16/19 06:00 98.8 69 18 175/66 (102) 98 Nasal Cannula 2.0 I&O- Last 24 Hours up to 6 AM 12/16/19 06:00 Intake Total 1400 ml Balance 1400 ml Laboratory Data 24H LABS Laboratory Tests 2 12/15/19 11:11: Bedside Glucose (Misc Panel) 126H ALEXIS GROSS MD Dec 16, 2019 07:21
[2019-12-16 08:03] LABS: HEMATOCRIT 26.1 % (36.0-47.0); MEAN CORPUSCULAR HEMOGLOBIN 27.8 pg (27.0-33.0); MEAN CORPUSCULAR HGB CONC 30.7 g/dl (32.0-36.5); MEAN CORPUSCULAR VOLUME 90.6 fl (80.0-96.0); PLATELET COUNT, AUTOMATED 166 10^3/uL (150-450); RED BLOOD COUNT 2.88 10^6/uL (4.00-5.40); WHITE BLOOD COUNT 10.4 10^3/uL (4.0-10.0)
[2019-12-16] MEDS: buPROPion **SR TABLET** (ZYBAN) 150MG PO SCH (08:25)
[2019-12-16] MEDS: ATORVASTATIN 10 MG TAB PO SCH (08:25)
[2019-12-16] MEDS: GABAPENTIN 300 MG CAP PO SCH (08:25)
[2019-12-16] MEDS: PROPRANOLOL 20 MG TAB PO SCH ×2 (08:25→21:20)
[2019-12-16] MEDS: DULoxetine 30 MG CAP (CYMBALTA) PO SCH ×2 (08:25→21:20)
[2019-12-16] MEDS: PANTOPRAZOLE 40MG TAB (PROTONIX) PO SCH (08:25)
[2019-12-16] MEDS: lisinopriL 10 MG TAB PO SCH ×2 (08:26→21:20)
[2019-12-16] MEDS: MOM 30ML SUSPENSION UDC PO SCH (08:27)
[2019-12-16] MEDS: MIRALAX *UNIT DOSE* 17GM PACKET PO SCH (08:27)
[2019-12-16 08:32] LABS: CALCIUM LEVEL 8.1 MG/DL (8.8-10.2); CREATININE FOR GFR 1.4 MG/DL (0.55-1.30); GLOMERULAR FILTRATION RATE 40.2 (>45); POTASSIUM SERUM 4.5 MEQ/L (3.5-5.1)
[2019-12-16 14:00] VITALS: BP 148/68
[2019-12-16] MEDS: RIVAROXABAN 10 MG TAB (XARELTO) PO SCH (17:44)
[2019-12-16 22:00] VITALS: BP 162/87
[2019-12-17] MEDS: PERCOCET 5MG/325MG TAB PO PRN (03:53)
[2019-12-17] MEDS: IPRATROPIUM 0.5MG/ALBUTEROL 2.5MG INH SOL UD 3ML (DUONEB) NEB SCH ×5 (04:00→19:42)
[2019-12-17 06:00] VITALS: BP 169/70
--- NOTE | 2019-12-17 08:52 | IPNPDOC ---
Date Seen The patient was seen on 12/17/19. Progress Note SUBJECTIVE: no pain while in bed not moving. no headache cp sob despite [id number]. aware that she needs ARU. no other c/o no constipation . on prn pain meds. OBJECTIVE: PHYSICAL EXAMINATION: VITAL SIGNS: See below GENERAL APPEARANCE: Awake, alert, oriented to person, place and time, answering questions appropriately HEENT: Face is symmetric. Tongue is midline. no conversational dyspneaSpeech is fluent. No JVD, thyromegaly or cervical lymphadenopathy. No carotid bruit CARDIOVASCULAR: S1, S2, sinus rhythm, no murmurs, rubs or gallops LUNGS: No kyphosis scoliosis. Air entry is equal bilaterally.diminished ABDOMEN: Positive bowel sounds 4 quadrants, soft, nontender, nondistended. No abdominal bruit MUSCULOSKELETAL: Postop left hip bandage clean and dry. No bloody discharge EXTREMITIES: No cyanosis, clubbing or pitting edema LABORATORY DATA: See below. EKG: Sinus rhythm, ventricular rate of 58, nonspecific ST-T wave changes, left ventricle hypertrophy IMAGING STUDIES: X-ray left hip with pelvis 12/14/2019. Acute left intertrochanteric fracture, minimally displaced a slight varus deformities noted. There is no dislocation. Moderate degenerative changes of the hips are present, unremarkable soft tissue 12/14/2019. CT head without contrast No acute intracranial abnormality 12/14/2019 Chest x-ray No acute findings 12/14/[address] cervical spine without contrast There is straightening of the normal cervical lordosis. There is 3 mm of anterolisthesis of C4 and C5 and 2 mm anterolisthesis of C5 on C6. No acute fracture is identified. Mild degenerative changes of the cervical spine are present. No significant spinal canal stenosis. Soft tissues are unremarkable. Lung apices are normal. 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 PROBLEMS: Mechanical fall from a standing position at home with an acute left intertrochanteric fracture History of CVA with chronic short-term memory loss Hypertension, uncontrolled Type 2 diabetes with diabetic neuropathy Active tobacco abuse/chronic bronchitis Diabetic nephropathy/chronic kidney disease stage III Anemia, most likely secondary to chronic kidney disease, iron deficiency, and hemodilution, s/p 1 u rbc transfusion 12/15/19 PLAN: changed lisinopril to 60 mg daily and added norvasc 10 daily for better bp control. pain meds prn and bowel regimen. dvt prophylaxis and postop mgt per ortho. will need ARU. PFS aware. CODE STATUS full code. Healthcare proxy Evangelist Kern [phone] VS, I&O, 24H, Fishbone Vital Signs/I&O Vital Signs Date Time Temp Pulse Resp B/P (MAP) Pulse Ox O2 Delivery O2 Flow Rate FiO2 12/17/19 06:00 97.8 64 18 169/70 (103) 93 Room Air 12/16/19 06:00 2.0 I&O- Last 24 Hours up to 6 AM 12/17/19 06:00 Intake Total 720 ml Output Total 800 ml Balance -80 ml Laboratory Data 24H LABS Laboratory Tests 2 12/16/19 11:21: Bedside Glucose (Misc Panel) 224H 12/16/19 20:30: Bedside Glucose (Misc Panel) 224H 12/17/19 06:39: Bedside Glucose (Misc Panel) 223H ALEXIS GROSS MD Dec 17, 2019 08:52
[2019-12-17] MEDS ORDERED: lisinopriL 20 MG TAB PO SCH (09:00)
[2019-12-17] MEDS: buPROPion **SR TABLET** (ZYBAN) 150MG PO SCH (09:53)
[2019-12-17] MEDS: ATORVASTATIN 10 MG TAB PO SCH (09:53)
[2019-12-17] MEDS: DULoxetine 30 MG CAP (CYMBALTA) PO SCH ×2 (09:53→20:24)
[2019-12-17] MEDS: MIRALAX *UNIT DOSE* 17GM PACKET PO SCH (09:53)
[2019-12-17] MEDS: PANTOPRAZOLE 40MG TAB (PROTONIX) PO SCH (09:53)
[2019-12-17] MEDS: GABAPENTIN 300 MG CAP PO SCH (09:53)
[2019-12-17] MEDS: MOM 30ML SUSPENSION UDC PO SCH (09:53)
[2019-12-17] MEDS: lisinopriL 40 MG TAB PO SCH (09:54)
[2019-12-17] MEDS: PROPRANOLOL 20 MG TAB PO SCH ×2 (09:54→20:24)
[2019-12-17] MEDS: ACETAMINOPHEN TAB 650MG DOSE (2X325MG) PO PRN ×2 (10:02→20:26)
[2019-12-17] MEDS ORDERED: amLODIPine 10 MG TAB PO ONE (12:15)
[2019-12-17 12:45] VITALS: BP 128/60
[2019-12-17] MEDS: HumaLOG INSULIN (NovoLOG) PER UNIT SC SCH ×3 (12:49→20:25)
[2019-12-17 14:00] VITALS: BP 152/55
[2019-12-17] MEDS: RIVAROXABAN 10 MG TAB (XARELTO) PO SCH (17:28)
[2019-12-17] MEDS: LEVEMIR (INSULIN DETEMIR) 1 UNITS/0.01ML SC SCH (20:23)
[2019-12-17] MEDS ORDERED: amLODIPine 10 MG TAB PO SCH (21:00)
[2019-12-17 21:30] VITALS: BP 158/87
[2019-12-17 22:00] VITALS: BP 156/56
[2019-12-17 22:30] VITALS: BP 130/58
[2019-12-18] MEDS: IPRATROPIUM 0.5MG/ALBUTEROL 2.5MG INH SOL UD 3ML (DUONEB) NEB SCH ×6 (02:59→20:00)
[2019-12-18] MEDS: ACETAMINOPHEN TAB 650MG DOSE (2X325MG) PO PRN ×2 (04:37→21:29)
[2019-12-18 06:00] VITALS: BP 132/64
[2019-12-18] MEDS: PANTOPRAZOLE 40MG TAB (PROTONIX) PO SCH (08:30)
[2019-12-18] MEDS: GABAPENTIN 300 MG CAP PO SCH (08:30)
[2019-12-18] MEDS: DULoxetine 30 MG CAP (CYMBALTA) PO SCH ×2 (08:30→21:27)
[2019-12-18] MEDS: ATORVASTATIN 10 MG TAB PO SCH (08:30)
[2019-12-18] MEDS: lisinopriL 40 MG TAB PO SCH (08:30)
[2019-12-18] MEDS: buPROPion **SR TABLET** (ZYBAN) 150MG PO SCH (08:30)
[2019-12-18] MEDS: HumaLOG INSULIN (NovoLOG) PER UNIT SC SCH ×4 (08:31→21:00)
[2019-12-18] MEDS: PROPRANOLOL 20 MG TAB PO SCH ×2 (08:34→21:27)
[2019-12-18] MEDS: MIRALAX *UNIT DOSE* 17GM PACKET PO SCH (08:34)
[2019-12-18] MEDS: amLODIPine 10 MG TAB PO SCH (08:34)
[2019-12-18] MEDS: MOM 30ML SUSPENSION UDC PO SCH (08:34)
--- NOTE | 2019-12-18 09:06 | IPNPDOC ---
Date Seen The patient was seen on 12/18/19. Progress Note SUBJECTIVE: no medical complaints. no constipation, pain is controlled. awaiting aru acceptance, but wants to take home to [facility] on Thursday, and says he has contacted [facility] to accept the patient. no other issues per RN. OBJECTIVE: PHYSICAL EXAMINATION: VITAL SIGNS: See below GENERAL APPEARANCE: able to stand and pivot with one person assistance to bedside commode. no respiratory distress AAO x 3. HEENT: Face is symmetric. Tongue is midline. no conversational dyspneaSpeech is fluent. No JVD, thyromegaly or cervical lymphadenopathy. No carotid bruit CARDIOVASCULAR: S1, S2, sinus rhythm, no murmurs, rubs or gallops LUNGS: No kyphosis scoliosis. Air entry is equal bilaterally.diminished ABDOMEN: Positive bowel sounds 4 quadrants, soft, nontender, nondistended. No abdominal bruit MUSCULOSKELETAL: Postop left hip bandage clean and dry. No bloody discharge EXTREMITIES: No cyanosis, clubbing or pitting edema LABORATORY DATA: See below. EKG: Sinus rhythm, ventricular rate of 58, nonspecific ST-T wave changes, left ventricle hypertrophy IMAGING STUDIES: X-ray left hip with pelvis 12/14/2019. Acute left intertrochanteric fracture, minimally displaced a slight varus deformities noted. There is no dislocation. Moderate degenerative changes of the hips are present, unremarkable soft tissue 12/14/2019. CT head without contrast No acute intracranial abnormality 12/14/2019 Chest x-ray No acute findings 12/14/[address] cervical spine without contrast There is straightening of the normal cervical lordosis. There is 3 mm of anterolisthesis of C4 and C5 and 2 mm anterolisthesis of C5 on C6. No acute fracture is identified. Mild degenerative changes of the cervical spine are present. No significant spinal canal stenosis. Soft tissues are unremarkable. Lung apices are normal. No acute abnormality ASSESSMENT AND PLAN: 64-year-old female with history diabetes, hypertension, CVA with residual chronic short-term memory loss, not on antiplatelet or anticoagulation therapy,diabetic neuropathy and nephropathy , chronic kidney disease stage III actively smoking cigarettes with [id number] history of smoking and chronic bronchitis, not steroid or home oxygen dependent, was brought in by ambulance after a mechanical fall and found to be anemic with an acute left intertroc hanteric fracture. PROBLEMS: Mechanical fall from a standing position at home with an acute left intertrochanteric fracture History of CVA with chronic short-term memory loss Hypertension, better controlled Type 2 diabetes with diabetic neuropathy, uncontrolled Active tobacco abuse/chronic bronchitis Diabetic nephropathy/chronic kidney disease stage III Anemia, most likely secondary to chronic kidney disease, iron deficiency, and hemodilution, s/p 1 u rbc transfusion 12/15/19 PLAN: family wants to take the pt home by plane on Thursday. PFS will be consulted to assist in ARU acceptance in [facility]. no other acute medical issues. BP and glucose better controlled. CODE STATUS full code. Healthcare proxy Evangelist Kern [phone] VS, I&O, 24H, [facility] Vital Signs/I&O Vital Signs Date Time Temp Pulse Resp B/P (MAP) Pulse Ox O2 Delivery O2 Flow Rate FiO2 12/18/19 08:34 65 176/64 12/18/19 06:00 98.1 18 92 Room Air 12/16/19 06:00 2.0 I&O- Last 24 Hours up to 6 AM 12/18/19 06:00 Intake Total 1995 ml Output Total 1220 ml Balance 775 ml Laboratory Data 24H LABS Laboratory Tests 2 12/17/19 12:08: Bedside Glucose (Misc Panel) 376H 12/17/19 17:04: Bedside Glucose (Misc Panel) 262H 12/17/19 20:15: Bedside Glucose (Misc Panel) 226H 12/18/19 06:18: Bedside Glucose (Misc Panel) 254H ALEXIS GROSS MD Dec 18, 2019 09:05
[2019-12-18 14:00] VITALS: BP 145/63
[2019-12-18] MEDS: RIVAROXABAN 10 MG TAB (XARELTO) PO SCH (17:40)
[2019-12-18] MEDS: LEVEMIR (INSULIN DETEMIR) 1 UNITS/0.01ML SC SCH (21:28)
[2019-12-18 22:00] VITALS: BP 181/69
[2019-12-19 00:01] VITALS: BP 132/68
[2019-12-19] MEDS: IPRATROPIUM 0.5MG/ALBUTEROL 2.5MG INH SOL UD 3ML (DUONEB) NEB SCH ×5 (03:21→20:00)
[2019-12-19] MEDS: ACETAMINOPHEN TAB 650MG DOSE (2X325MG) PO PRN ×3 (04:46→20:29)
[2019-12-19 06:00] VITALS: BP 136/82
--- NOTE | 2019-12-19 07:59 | IPNPDOC ---
Date Seen The patient was seen on 12/19/19. Progress Note SUBJECTIVE: had bm today. no c/o pain. plans to go home to [place] by plane on Thursday. no new c/o. denies cough, sob OBJECTIVE: PHYSICAL EXAMINATION: VITAL SIGNS: See below GENERAL APPEARANCE: no respiratory distress AAO x 3.speaks in full sentences HEENT: Face is symmetric. Tongue is midline. no conversational dyspnea Speech is fluent. No JVD, thyromegaly or cervical lymphadenopathy. No carotid bruit CARDIOVASCULAR: S1, S2, sinus rhythm, no murmurs, rubs or gallops LUNGS: No kyphosis scoliosis. Air entry is equal bilaterally.diminished ABDOMEN: Positive bowel sounds 4 quadrants, soft, nontender, nondistended. No abdominal bruit. no HSM MUSCULOSKELETAL: Postop left hip bandage clean and dry. No bloody discharge EXTREMITIES: No cyanosis, clubbing or pitting edema LABORATORY DATA: See below. EKG: Sinus rhythm, ventricular rate of 58, nonspecific ST-T wave changes, left ventricle hypertrophy IMAGING STUDIES: X-ray left hip with pelvis 12/14/2019. Acute left intertrochanteric fracture, minimally displaced a slight varus deformities noted. There is no dislocation. Moderate degenerative changes of the hips are present, unremarkable soft tissue 12/14/2019. CT head without contrast No acute intracranial abnormality 12/14/2019 Chest x-ray No acute findings 12/14/[address] cervical spine without contrast There is straightening of the normal cervical lordosis. There is 3 mm of anterolisthesis of C4 and C5 and 2 mm anterolisthesis of C5 on C6. No acute fracture is identified. Mild degenerative changes of the cervical spine are present. No significant spinal canal stenosis. Soft tissues are unremarkable. Lung apices are normal. No acute abnormality ASSESSMENT AND PLAN: 64-year-old female with history diabetes, hypertension, CVA with residual chronic short-term memory loss, not on antiplatelet or anticoagulation therapy,diabetic neuropathy and nephropathy , chronic kidney disease stage III actively smoking cigarettes with [id number] history of smoking and chronic bronchitis, not steroid or home oxygen dependent, was brought in by ambulance after a mechanical fall and found to be anemic with an acute left intertrochanteric fracture. PROBLEMS: Mechanical fall from a standing position at home with an acute left intertrochanteric fracture History of CVA with chronic short-term memory loss Hypertension, better controlled Type 2 diabetes with diabetic neuropathy, uncontrolled Active tobacco abuse/chronic bronchitis Diabetic nephropathy/chronic kidney disease stage III Anemia, most likely secondary to chronic kidney disease, iron deficiency, and hemodilution, s/p 1 u rbc transfusion 12/15/19 PLAN: awaiting PT clearance. Evangelist Kern [phone] present at the bedside with plans to go home Thursday and have Kike nolasco take care of the patient at home. PFS consulted. if pt does not need rehab, may dc home by plane on Thursday. VS, I&O, 24H, Fishbone VS, I&O, 24H, Fishbone Vital Signs/I&O Vital Signs Date Time Temp Pulse Resp B/P (MAP) Pulse Ox O2 Delivery O2 Flow Rate FiO2 12/19/19 06:00 97.9 57 17 136/82 (100) 97 Room Air 12/16/19 06:00 2.0 I&O- Last 24 Hours up to 6 AM 12/19/19 06:00 Intake Total 1450 ml Output Total 1400 ml Balance 50 ml Laboratory Data 24H LABS Laboratory Tests 2 12/18/19 11:31: Bedside Glucose (Misc Panel) 254H 12/18/19 16:35: Bedside Glucose (Misc Panel) 231H 12/18/19 20:04: Bedside Glucose (Misc Panel) 231H 12/19/19 06:38: Bedside Glucose (Misc Panel) 197H ALEXIS GROSS MD Dec 19, 2019 07:59
[2019-12-19] MEDS ORDERED: PERC5TAB12 PO ×2 (08:00→08:08)
[2019-12-19] MEDS ORDERED: XARE10TA PO (08:00)
[2019-12-19] MEDS: DULoxetine 30 MG CAP (CYMBALTA) PO SCH ×2 (08:56→20:28)
[2019-12-19] MEDS: buPROPion **SR TABLET** (ZYBAN) 150MG PO SCH (08:57)
[2019-12-19] MEDS: PANTOPRAZOLE 40MG TAB (PROTONIX) PO SCH (08:57)
[2019-12-19] MEDS: GABAPENTIN 300 MG CAP PO SCH (08:57)
[2019-12-19] MEDS: lisinopriL 40 MG TAB PO SCH (08:57)
[2019-12-19] MEDS: ATORVASTATIN 10 MG TAB PO SCH (08:57)
[2019-12-19] MEDS: amLODIPine 10 MG TAB PO SCH (08:58)
[2019-12-19] MEDS: HumaLOG INSULIN (NovoLOG) PER UNIT SC SCH ×4 (08:58→20:32)
[2019-12-19] MEDS: MIRALAX *UNIT DOSE* 17GM PACKET PO SCH (09:00)
[2019-12-19] MEDS: PROPRANOLOL 20 MG TAB PO SCH ×2 (09:00→20:28)
[2019-12-19] MEDS: MOM 30ML SUSPENSION UDC PO SCH (09:00)
--- NOTE | 2019-12-19 10:12 | REP ---
LEFT FEMUR: 5-VIEWS HISTORY: Fractured left hip. Intraprocedural imaging. FLUROSCOPY TIME: 3 minutes 5 seconds reported. FINDINGS: A sequence of five [id number] fluoroscopically obtained spot radiographs of the femur document intramedullary jennifer and femoral neck pin fixation of a proximal femur fracture. No laterality markers are visible. MTDD
[2019-12-19 12:42] LABS: HEMATOCRIT 28.1 % (36.0-47.0); HEMOGLOBIN 8.7 g/dl (12.0-15.5); MEAN CORPUSCULAR HEMOGLOBIN 27.8 pg (27.0-33.0); MEAN CORPUSCULAR VOLUME 89.8 fl (80.0-96.0); PLATELET COUNT, AUTOMATED 226 10^3/uL (150-450); RED BLOOD COUNT 3.13 10^6/uL (4.00-5.40); WHITE BLOOD COUNT 11.6 10^3/uL (4.0-10.0)
[2019-12-19 13:02] LABS: CALCIUM LEVEL 8.5 MG/DL (8.8-10.2); CREATININE FOR GFR 1.68 MG/DL (0.55-1.30); GLOMERULAR FILTRATION RATE 32.6 (>45); POTASSIUM SERUM 4.7 MEQ/L (3.5-5.1)
[2019-12-19 14:00] VITALS: BP 146/60
[2019-12-19] MEDS ORDERED: LOMOTIL 2.5MG/0.025MG TABLET PO PRN (17:00)
[2019-12-19] MEDS: RIVAROXABAN 10 MG TAB (XARELTO) PO SCH (17:21)
[2019-12-19] MEDS: LEVEMIR (INSULIN DETEMIR) 1 UNITS/0.01ML SC SCH (20:29)
[2019-12-19 22:00] VITALS: BP 135/52
[2019-12-20 01:00] VITALS: BP 120/68
[2019-12-20] MEDS: ACETAMINOPHEN TAB 650MG DOSE (2X325MG) PO PRN ×2 (01:02→05:45)
[2019-12-20 06:00] VITALS: BP 138/80
[2019-12-20] MEDS: DULoxetine 30 MG CAP (CYMBALTA) PO SCH (07:57)
[2019-12-20] MEDS: ATORVASTATIN 10 MG TAB PO SCH (07:57)
[2019-12-20] MEDS: HumaLOG INSULIN (NovoLOG) PER UNIT SC SCH (07:57)
[2019-12-20 07:58] VITALS: BP 138/80
[2019-12-20] MEDS: PANTOPRAZOLE 40MG TAB (PROTONIX) PO SCH (07:58)
[2019-12-20] MEDS: buPROPion **SR TABLET** (ZYBAN) 150MG PO SCH (07:58)
[2019-12-20] MEDS: PROPRANOLOL 20 MG TAB PO SCH (07:58)
[2019-12-20] MEDS: amLODIPine 10 MG TAB PO SCH (07:58)
[2019-12-20] MEDS: lisinopriL 40 MG TAB PO SCH (07:58)
[2019-12-20] MEDS: GABAPENTIN 300 MG CAP PO SCH (07:58)
[2019-12-20] MEDS: MOM 30ML SUSPENSION UDC PO SCH (07:59)
[2019-12-20] MEDS: IPRATROPIUM 0.5MG/ALBUTEROL 2.5MG INH SOL UD 3ML (DUONEB) NEB SCH ×2 (08:00)
[2019-12-20] MEDS ORDERED: ACET1TAB55 PO (10:42)
[2019-12-20] MEDS ORDERED: INSUDET SC (10:42)
[2019-12-20] MEDS ORDERED: AMLO1TAB25 PO (10:42)
[2019-12-20 11:00] VITALS: BP 138/68
--- NOTE | 2019-12-20 22:42 | DS.PDOC ---
Discharge Summary General Date of Admission Dec 14, 2019 at 13:27 Date of Discharge Dec 20, 2019 Attending Physician: BEAU DELGADO DO Specialist/Cons[facility], Dr. Teixeira Discharge Summary PROCEDURES PERFORMED DURING STAY: ORIF for left intertrochanteric fracture on 12/14/2019. Blood transfusion 1uPRB on 12/14/2019 ADMITTING DIAGNOSES: 1. Mechanical fall from a standing position at home with an acute left intertrochanteric fracture 2. History of CVA with chronic short-term memory loss 3. Hypertension 4. Type 2 diabetes with diabetic neuropathy 5. Active tobacco abuse 6. Chronic bronchitis 7. Diabetic nephropathy 8. Chronic kidney disease stage III 9. Anemia secondary to chronic kidney disease and iron deficiency DISCHARGE DIAGNOSES: 1. Mechanical fall from a standing position at home with an acute left intertrochanteric fracture 2. History of CVA with chronic short-term memory loss 3. Hypertension 4. Type 2 diabetes with diabetic neuropathy 5. Active tobacco abuse 6. Chronic bronchitis 7. Diabetic nephropathy 8. Chronic kidney disease stage III 9. Anemia secondary to chronic kidney disease and iron deficiency COMPLICATIONS/CHIEF COMPLAINT: Fracture Of Left Hip. HISTORY OF PRESENT ILLNESS: Mrs. Kern is a 64-year-old female with history diabetic neuropathy and nephropathy , chronic kidney disease stage III, hypertension, and CVA with residual chronic short-term memory loss who was brought in by ambulance after slipping and falling in the bathroom on 12/14/2019. Patient is visiting along with her to help her daughter at [facility] to [place], [place]. She had already taken a shower this morning but went back into the bathroom to wash her face and hair, when she slipped and fell on wet tiles landing on her left side and hitting the tub. Denies head strike or LOC. Daughter was present in the bathroom and saw that her left leg was twisted inwards with the toes pointing medially. Ambulance brought her to the ED where she was found to have a left hip fracture. Orthopedic surgery was consulted and both patient and agreed to surgery. Medicine admitted the patient for acute intratrochanteric fracture 2/2 mechanical fall. She denied any prodromal symptoms and denied any chest pain, pressure, tightness, shortness of breath, lightheadedness, dizziness, palpitations, nausea, vomiting, epigastric discomfort prior to the fall. She has been in her usual state of health and denied any fever, chills, shortness of breath, nausea, vomiting, dysuria, urgency, frequency, weight gain, weight loss, polyuria, polyphasia, insomnia, ear pain, discharge, tinnitus, vertigo, photophobia, diplopia. She admits to having chronic short-term memory loss and has difficulty with her left side due to prior history of CVA, but per the is able to walk up and down the grocery store and able to walk up the stairs without shortness of breath or chest pain. She has no prior history of coronary artery disease, [place] or congestive heart failure. She denies any bright red blood per rectum, melena, black tarry stools, history of gastritis, peptic ulcer disease, but was noted to have chronic anemia with hemoglobin of 8. HOSPITAL COURSE: Patient went to surgery on 12/14/2019. The following morning, she was found to have acute worsening anemia with hemoglobin of 6.8 (from 8.1 on admission). She was given 1u pRBC of which she responded appropriately. Patient worked with physical therapy and initially required acute rehab. Since she was from [place], case management director here were working on placement. Today, physical therapy was able to clear patient to go home with and drive back to [place] with recommendations for a wheelchair and rolling walker. working on obtaining wheelchair, but declined on script for rolling walker as they have several walkers at home. Today patient felt well. Denies fever/chills, chest pain, dyspnea, abdominal pain or dysuria. She felt ready for discharged and she was subsequently discharged. Attempted to call Dr. Dr. Padilla (Orthopedic surgeon), but received busy signal. Will attempt again at another time. DISCHARGE MEDICATIONS: Please see below. ALLERGIES: Please see below. PHYSICAL EXAMINATION ON DISCHARGE: VITAL SIGNS: Please see below. GENERAL: Comfortable, in no apparent distress HEENT: Head normocephalic, atraumatic, EOMI, tongue midline NECK: Supple CARDIOVASCULAR EXAMINATION: Regular rate and rhythm RESPIRATORY EXAMINATION: Lungs clear to auscultation bilaterally ABDOMINAL EXAMINATION: Soft, nontender, normal bowel sounds EXTREMITIES: No pitting edema SKIN: Left surgical site bandaged, no leakage or erythema seen NEUROLOGICAL EXAMINATION: Speech fluent PSYCHIATRIC EXAMINATION: Normal mood and affect LABORATORY DATA: Please see below. IMAGING: Left hip XR Acute left intertrochanteric fracture Left femur XR Acute left intertrochanteric fracture CT cervical spine No acute abnormality Vertebrae: There is straightening of the normal cervical lordosis. There is 3 mm of anterolisthesis of C4 on C5 and 2 mm of anterolisthesis of C5 on C6. No acute fracture is identified. Discs/Spinal canal/Neural foramina: Mild degenerative changes of the cervical spine are present. There is no significant spinal canal stenosis. PROGNOSIS: Stable ACTIVITY: Walk with walker, weight bearing as tolerated, may shower DIET: Carbohydrate consistent diet DISCHARGE PLAN: Home with , plan to return to [place] DISPOSITION: Home, Self-Care. DISCHARGE INSTRUCTIONS: 1. Keep appointment with your PCP, BIENVENIDO Elena on 12/25 at 11AM 2. Keep appointment with your orthopedic surgeon, Dr. Padilla on 01/04 at 9:15AM at the [facility] DISCHARGE CONDITION: Stable Total time spent on discharge planning, discharge summary, and medicine reconciliation: 45 mins Vital Signs/I&Os Vital Signs Date Time Temp Pulse Resp B/P (MAP) Pulse Ox O2 Delivery O2 Flow Rate FiO2 12/20/19 11:00 98.2 70 16 138/68 (91) 98 Room Air 12/16/19 06:00 2.0 I&O- Last 24 Hours up to 6 AM 12/20/19 06:00 Intake Total 1700 ml Output Total 1700 ml Balance 0 ml Laboratory Data Labs 24H Laboratory Tests 2 12/20/19 11:46: Bedside Glucose (Misc Panel) 223H FSBS Laboratory Tests Test 12/20/19 11:46 Range/Units Bedside Glucose (Misc Panel) 223 80-115 MG/DL Discharge Medications Scheduled Alogliptin Benzoate (Nesina) 25 Mg Tablet, 12.5 MG PO DAILY, (Reported) Amlodipine Besylate (Amlodipine Besylate) 10 Mg Tablet, 10 MG PO DAILY Atorvastatin Calcium (Atorvastatin Calcium) 10 Mg Tablet, 10 MG PO DAILY, (Reported) Bupropion HCl (Bupropion HCl Sr) 150 Mg Tab.sr.12h, 150 MG PO DAILY, (Reported) Duloxetine Hcl (Duloxetine HCl) 60 Mg Capsule., 60 MG PO BID, (Reported) Gabapentin (Gabapentin) 600 Mg Tablet, 600 MG PO DAILY, (Reported) Liraglutide (Victoza 2-Gera) 0.6 Mg/0.1 Ml Pen.injctr, 1.8 MG SC DAILY, (Reported) Lisinopril (Lisinopril) 40 Mg Tablet, 40 MG PO DAILY, (Reported) Pantoprazole Sodium (Pantoprazole Sodium) 40 Mg Tablet.dr, 40 MG PO DAILY, (Reported) Propranolol HCl (Propranolol HCl) 40 Mg Tablet, 40 MG PO BID, (Reported) Rivaroxaban (Xarelto) 10 Mg Tablet, 10 MG PO DAILY Sitagliptin Phosphate (Januvia) 100 Mg Tablet, 100 MG PO DAILY, (Reported) Scheduled PRN Acetaminophen (Acetaminophen) 325 Mg Tablet, 650 MG PO Q4HP PRN for MILD PAIN (PS 1-4) Albuterol Sulf (Albuterol Sulfate) 2.5 Mg/3 Ml Vial.neb, 1 VIAL NEB Q6-8HP PRN for wheezing, (Reported) Meclizine HCl (Meclizine HCl) 25 Mg Tablet, 25 MG PO DAILY PRN for VERTIGO/DIZZINESS, (Reported) Oxycodone HCl/Acetaminophen (Percocet 5-325 mg Tablet) 1 Each Tablet, 1 TAB PO Q4H PRN for PAIN Miscellaneous Medications Insulin Glargine,Hum.rec.anlog (Basaglar Kwikpen U-100) 100 Unit/1 Ml Insuln.pen, 30 UNIT SC, (Reported) Allergies Coded Allergies: No Known Drug Allergies (Verified Allergy, Unknown, 12/14/19) BEAU DELGADO DO Dec 20, 2019 22:42
== END 2019-12-20 12:10 | disposition home or self-care (01) | DRG 482 ==
LOC: M ED 11:20 → EDBD 11:20 → EDSEX 11:20 → M ED INP 13:27 → M MS5PR 18:20
PROVIDERS: ADMIT General Practice; ATTEND Internal Medicine
PROC: 0QS706Z Reposition Left Upper Femur with Intramedullary Internal Fixation Device, Open Approach (ICD-10-PCS; principal; 2019-12-14 13:51)
PROC: 30233N1 Transfusion of Nonautologous Red Blood Cells into Peripheral Vein, Percutaneous Approach (ICD-10-PCS; 2019-12-15)
DX: S72.142A Displaced intertrochanteric fracture of left femur, initial encounter for closed fracture (principal); E11.22 Type 2 diabetes mellitus with diabetic chronic kidney disease; N18.30 Chronic kidney disease, stage 3 unspecified; E11.40 Type 2 diabetes mellitus with diabetic neuropathy, unspecified; I12.9 Hypertensive chronic kidney disease with stage 1 through stage 4 chronic kidney disease, or unspecified chronic kidney disease; I69.311 Memory deficit following cerebral infarction; F17.210 Nicotine dependence, cigarettes, uncomplicated; J42 Unspecified chronic bronchitis; D63.1 Anemia in chronic kidney disease; W18.09XA Striking against other object with subsequent fall, initial encounter; Y92.009 Unspecified place in unspecified non-institutional (private) residence as the place of occurrence of the external cause; Y93.E1 Activity, personal bathing and showering; Y99.8 Other external cause status